=== PATIENT | male | born 1960 | race Caucasian/White ===

== ENCOUNTER 2022-10-15 16:31 | Inpatient (IN) | payer OTHER ==
[~2022-10-15] VITALS: Ht 188 cm; Wt 146.1 kg
[2022-10-15 16:43] VITALS: BP_SYST 148
--- NOTE | 2022-10-15 16:50 | NUR ---
Placed in room 08 . Placed on patient monitor, blood pressure machine and pulse oximeter. To gown for exam. Side rails up.
--- NOTE | 2022-10-15 17:00 | NUR ---
PT BIBA AWAKE AND ALOERT AOX4, NO SOB OR DISTRESS. PT C/O CHEST PAIN STARTING TODAY. PAIN /. PT WAS GIVEN 3 DOSE OF NITROGLYCERIN W/ EMT AND 81MG ASPIRIN. PT DENIES N/V. PT PAS HX OF HTN, AND DM2.
[2022-10-15 17:24] LABS: BASOPHILS # (AUTO) 0.1 K/uL (0.0-0.2); BASOPHILS % (AUTO) 0.8 % (0.0-2.0); EOSINOPHILS # (AUTO) 0.3 K/uL (0.0-0.4); EOSINOPHILS % (AUTO) 3.5 % (0.0-4.0); HEMATOCRIT 44.9 % (36-54); HEMOGLOBIN 15.5 g/dL (14.0-18.0); LYMPHOCYTES # (AUTO) 1.7 K/uL (1.0-5.5); LYMPHOCYTES % (AUTO) 21.1 % (20.5-51.5); MEAN CORPUSCULAR HEMOGLOBIN 30 pg (27-31); MEAN CORPUSCULAR HGB CONC 35 % (32-36); MEAN CORPUSCULAR VOLUME 86 fL (79.0-98.0); MONOCYTES # (AUTO) 0.7 K/uL (0.0-1.0); MONOCYTES % (AUTO) 8.5 % (1.7-9.3); NEUTROPHILS # (AUTO) 5.3 K/uL (1.8-7.7); NEUTROPHILS % (AUTO) 66.1 % (40.0-70.0); PLATELET COUNT (AUTO) 139 K/uL (130-430); RED CELL DISTRIBUTION WIDTH 13.7 % (9.0-15.0); WHITE BLOOD COUNT (AUTO) 7.9 K/uL (4.8-10.8)
--- NOTE | 2022-10-15 17:27 | NUR ---
MD DR FIGUEROA AT BEDSIDE
[2022-10-15] MEDS ORDERED: NITROGLYCERIN 0.4 MG TAB.SUBL SL ONE (17:30)
[2022-10-15 17:35] LABS: ANION GAP 7 (5-15); CALCIUM 9.5 mg/dL (8.4-11.0); CHLORIDE 105 mmol/L (98-107); CREATININE 0.79 mg/dL (0.55-1.30); GLUCOSE 150 mg/dL (70-99); UREA NITROGEN, BLOOD 11 mg/dL (8-21)
[2022-10-15 17:43] LABS: ALANINE AMINOTRANSFERASE 35 U/L (12-78); ALBUMIN 3.7 g/dL (3.4-4.8); ASPARTATE AMINOTRANSFERASE 26 U/L (10-37); TOTAL BILIRUBIN 1.1 mg/dL (0.0-1.0)
[2022-10-15 17:51] LABS: GFR AFRICAN AMERICAN 128 mL/min (>90)
[2022-10-15] MEDS ORDERED: HEPARIN 25,000 UNITS/D5W 250ML 250 ML IV ONE (18:15)
[2022-10-15] MEDS ORDERED: FUROSEMIDE 40 MG/4 ML VIAL IVP ONE (19:30)
[2022-10-15 19:51] LABS: INR 1.2 (0.80-1.20); PROTHROMBIN TIME 11.6 SECS (9.5-12.5)
[2022-10-15] MEDS ORDERED: *HEPARIN PER PHARMACY XX ONE (21:00)
--- NOTE | 2022-10-15 21:00 | NUR ---
Admit bed requested Patient will be admitted to care of . Admitted to TELE unit. Diagnosis NSTEMI Inpatient (Yes or No) YES Observation (Yes or No) NO Orientation concerns or request close to nursing station (Yes or No) NO Covid Status NEGATIVE On vent or bipap NO Isolation requirements NO Needs a sitter NO From Home (Yes or if No enter name of facility) YES Requires Dialysis (Yes or No) NO Med Rec Completed (Yes of No) PENDING
[2022-10-15] MEDS ORDERED: HEPARIN SODIUM,PORCINE 2000 UNITS/0.4 ML BOLUS IVP PRN (21:30)
[2022-10-15] MEDS ORDERED: METF-518 PO (21:56)
[2022-10-15] MEDS ORDERED: BENA10TA73 PO (21:56)
--- NOTE | 2022-10-15 21:56 | NUR ---
Medication reconciliation completed with information provided by pt at the bedside. Any prior medication reconciliation on file was reviewed and corrected.
--- NOTE | 2022-10-15 22:05 | NUR ---
ADMISSION NOTE Received patient from ER via jennie, received report from ER/ RN. Patient admitted with diagnosis of NSTEMI. Patient oriented to hospital routine, call light, toileting and safety-patient verbalized understanding.
--- NOTE | 2022-10-15 22:21 | NUR ---
Patient will be admitted to care of DR CHAO. Admitted to TELE unit. Will go to room 100B. Belongings list completed. Complete and up to date summary report printed. SBAR report to be given at bedside with opportunity for questions.
[2022-10-15 22:24] VITALS: BP_SYST 117
--- NOTE | 2022-10-15 22:37 | NUR ---
CONSULTATION PAGED/CALLED Reason for Consultation: CHEST PAIN/NSTEMI Person Who was Notified: JAMAL Consulting Physician: DR HUTTON Floral Design Teacher Specialty: TANNING WHEEL OPERATOR Ordering Physician: DR. CHAO Addendum: 10/15/22 at 2323 by Melly Ramirez RN CONSULT CANCELLED SPOKE TO DR. HUTTON
--- NOTE | 2022-10-15 23:23 | NUR ---
CONSULTATION PAGED/CALLED Reason for Consultation:Chest pain;NSTEMI Person Who was Notified: Dr. Tiffani Hendrickson Consulting Physician: Transformer Shop Supervisor Specialty: Hospice Administrator Ordering Physician: Dr. Proctor
[2022-10-15] MEDS ORDERED: DEXTROSE 50% JECT 50 ML DISP.SYRIN IVP PRN (23:30)
[2022-10-16] MEDS: HEPARIN SODIUM,PORCINE 3000 UNITS/0.6 ML BOLUS IVP PRN ×3 (04:18→23:50)
[2022-10-16] MEDS: HEPARIN 25,000 UNITS in 250 ML PREMIX IV PRN ×4 (04:25→23:49)
[2022-10-16 06:40] LABS: CALCIUM 8.9 mg/dL (8.4-11.0); CREATININE 0.74 mg/dL (0.55-1.30)
[2022-10-16 06:54] LABS: BASOPHILS % (AUTO) 0.5 % (0.0-2.0); EOSINOPHILS # (AUTO) 0.2 K/uL (0.0-0.4); HEMOGLOBIN 14.6 g/dL (14.0-18.0); LYMPHOCYTES # (AUTO) 2.2 K/uL (1.0-5.5); MEAN CORPUSCULAR HEMOGLOBIN 30 pg (27-31); MEAN CORPUSCULAR HGB CONC 34 % (32-36); MEAN CORPUSCULAR VOLUME 87 fL (79.0-98.0); MONOCYTES # (AUTO) 0.7 K/uL (0.0-1.0); MONOCYTES % (AUTO) 8.8 % (1.7-9.3); NEUTROPHILS % (AUTO) 60.7 % (40.0-70.0); PLATELET COUNT (AUTO) 135 K/uL (130-430); RED BLOOD CELL COUNT(AUTO) 4.95 MIL/uL (4.2-6.2); RED CELL DISTRIBUTION WIDTH 13.7 % (9.0-15.0); WHITE BLOOD COUNT (AUTO) 8.2 K/uL (4.8-10.8)
[2022-10-16 06:55] LABS: ALBUMIN 3.4 g/dL (3.4-4.8); FREE T4 (FREE THYROXINE) 1.2 ng/dl (0.8-1.5); THYROID STIMULATING HORMONE 3.77 uIu/mL (0.36-3.74); TOTAL BILIRUBIN 1.1 mg/dL (0.0-1.0)
--- NOTE | 2022-10-16 08:00 | NUR ---
Opening Notes. Pt. is AAOX4, no reports of pain at this time. Pt. is able to ambulate and is currently sitting up and eating breakfast. No signs of acute distress.
[2022-10-16] MEDS ORDERED: BENAZEPRIL HCL Non-Formulary 10 MG TABLET PO SCH (09:00)
[2022-10-16 09:08] VITALS: BP_SYST 130
[2022-10-16] MEDS ORDERED: POTASSIUM CHLORIDE 20 MEQ TAB.PRT.SR PO SCH (10:00)
--- NOTE | 2022-10-16 10:45 | NUR ---
Adjusted Heparin according to protocol located on eMR. Pt. reports no bleeding or bruising, pt. has been educated on Heparin drip and the precautions.
[2022-10-16] MEDS: LISINOPRIL 10 MG TABLET (PRINIVIL) PO SCH (10:53)
[2022-10-16] MEDS ORDERED: POTASSIUM CHLORIDE 20 MEQ TAB.PRT.SR PO ONE (11:30)
[2022-10-16 14:55] VITALS: BP_SYST 133
--- NOTE | 2022-10-16 16:49 | NUR ---
DR. Keith has stated it is ok for pt. to use home cpap from home.
--- NOTE | 2022-10-16 17:53 | NUR ---
PATIENT REFUSED TO USE HOSPITAL CPAP. PATIENT USES PATIENT'S CPAP FROM HOME. MD CHAO PERMITTED TO USE HOME CPAP.
--- NOTE | 2022-10-16 19:00 | NUR ---
Closing Notes Full SBAR report given to JD Cohen, pt. is on heparin drip currently running at 16ml/hr or 1600units/hr, endorsed orders to check ptt and follow heparin protocol. Pt. is AAOx4, no reports of chest pain, no signs of acute distress.
[2022-10-16 20:00] VITALS: BP_SYST 139
[2022-10-16] MEDS: INSULIN REGULAR, HUMAN 100 UNITS/ML, 3 ML VIAL (humuLIN R) SUBCUT PRN (20:35)
--- NOTE | 2022-10-16 23:51 | NUR ---
HEPARIN DOSAGE: PTT was noted at 29.9 protocol was followed and patient received 3,000 units IVP and dosage was changed to 19ml/hr. New labs were scheduled for [facility] protocol. Will continue to monitor.
[2022-10-17] VITALS: BP_SYST 126
[2022-10-17] MEDS: INSULIN REGULAR, HUMAN 100 UNITS/ML, 3 ML VIAL (humuLIN R) SUBCUT PRN (06:01)
[2022-10-17] MEDS ORDERED: ACETAMINOPHEN 325 MG TABLET PO PRN (06:15)
[2022-10-17 08:05] VITALS: BP_SYST 131
--- NOTE | 2022-10-17 08:07 | NUR ---
Initial notes Sitting in the chair,eating breakfast. denies any pain or shortness of breath.Has mild headache,was medicated with tylenol.Patient wants to go home. Informed patient that he needs to be cleared by forming process line worker. Pt verbalize understanding
[2022-10-17 08:36] LABS: CALCIUM 8.5 mg/dL (8.4-11.0); CREATININE 0.89 mg/dL (0.55-1.30)
[2022-10-17] MEDS: LISINOPRIL 10 MG TABLET (PRINIVIL) PO SCH (08:52)
[2022-10-17 09:00] LABS: BASOPHILS % (AUTO) 0.6 % (0.0-2.0); EOSINOPHILS # (AUTO) 0.3 K/uL (0.0-0.4); EOSINOPHILS % (AUTO) 4.3 % (0.0-4.0); HEMATOCRIT 45.4 % (36-54); HEMOGLOBIN 15.3 g/dL (14.0-18.0); LYMPHOCYTES # (AUTO) 2.5 K/uL (1.0-5.5); LYMPHOCYTES % (AUTO) 32.4 % (20.5-51.5); MEAN CORPUSCULAR HEMOGLOBIN 29 pg (27-31); MEAN CORPUSCULAR HGB CONC 34 % (32-36); MEAN CORPUSCULAR VOLUME 87 fL (79.0-98.0); MONOCYTES # (AUTO) 0.5 K/uL (0.0-1.0); MONOCYTES % (AUTO) 6.6 % (1.7-9.3); NEUTROPHILS # (AUTO) 4.3 K/uL (1.8-7.7); NEUTROPHILS % (AUTO) 56.1 % (40.0-70.0); PLATELET COUNT (AUTO) 132 K/uL (130-430); RED BLOOD CELL COUNT(AUTO) 5.22 MIL/uL (4.2-6.2); WHITE BLOOD COUNT (AUTO) 7.7 K/uL (4.8-10.8)
[2022-10-17] MEDS ORDERED: POTASSIUM CHLORIDE 20 MEQ TAB.PRT.SR PO SCH (09:00)
--- NOTE | 2022-10-17 09:09 | NUR ---
AMA-Patient stated that he wants to go home now, informed patient i can call the doctor but patient stated that he can not wait anymore. Patient stated that he feels better. IVL lock removed.
== END 2022-10-17 09:00 | disposition left against medical advice (07) | DRG 280 ==
LOC: SED 16:31 → STU 20:55
PROVIDERS: ADMIT Internal Medicine; ATTEND Internal Medicine
DX: I11.0 Hypertensive heart disease with heart failure (principal); I21.4 Non-ST elevation (NSTEMI) myocardial infarction; I50.43 Acute on chronic combined systolic (congestive) and diastolic (congestive) heart failure; Z68.41 Body mass index [BMI] 40.0-44.9, adult; E11.9 Type 2 diabetes mellitus without complications; G47.33 Obstructive sleep apnea (adult) (pediatric); Z20.822 Contact with and (suspected) exposure to COVID-19; E87.6 Hypokalemia; G47.30 Sleep apnea, unspecified; C44.90 Unspecified malignant neoplasm of skin, unspecified; E66.01 Morbid (severe) obesity due to excess calories; Z88.7 Allergy status to serum and vaccine; Z79.899 Other long term (current) drug therapy; Z90.49 Acquired absence of other specified parts of digestive tract; I25.119 Atherosclerotic heart disease of native coronary artery with unspecified angina pectoris
CPT/HCPCS: 36415; 71045; 80048; 80053; 80061; 82962; 83735; 83880; 84439; 84443; 84484; 85025; 85379; 85610-TC; 85730-TC; 93005; 93306; 93970; 96365; 96375; 99285; G0378; J1644; J1940